=== PATIENT | male | born 1975 | race Caucasian/White ===

== ENCOUNTER 2017-02-22 08:36 | Emergency (ER) | payer BC ==
[2017-02-22 08:43] VITALS: BP 131/72
--- NOTE | 2017-02-22 09:14 | UC ---
Knee Pain HPI - HPI Summary HPI Summary: WHILE GETTING OUT OF TRUCK YESTERDAY LEFT KNEE WAS TURNED AND WHEN HE LANDED ON IT HE FELT IT GIVE OUT. PAIN HAS PERSISTED. WORSE WITH WALKING, PROLONGED SITTING. HAS A CYST REMOVED FROM LEFT KNEE 1993. DENIES CURRENT SENSATION THAT KNEE WILL GIVE OUT. NO POPPING, CLICKING OR LOCKING UP. NO SWELLING. - History of Current Complaint Chief Complaint: UCLowerExtremity Stated Complaint: KNEE PAIN Time Seen by Provider: 02/22/17 08:53 Hx Obtained From: Patient Onset/Duration: Sudden Onset, Lasting Hours, Still Present Severity Initially: Moderate Severity Currently: Moderate Pain Intensity: 6 Pain Scale Used: 0-10 Numeric Character: Sharp Aggravating Factor(s): Movement, Weight Bearing, Stairs Alleviating Factor(s): Rest Associated Signs And Symptoms: Negative: Swelling, Redness, Bruising, Numbness, Tingling Able to Bear Weight: Yes - Allergies/Home Medications Allergies/Adverse Reactions: Allergies Allergy/AdvReac Type Severity Reaction Status Date / Time Amoxicillin Allergy Severe Anaphylatic Verified 02/22/17 08:39 Shock Ampicillin Allergy Severe Anaphylatic Verified 02/22/17 08:39 Shock Penicillins Allergy Severe Anaphylatic Verified 02/22/17 08:39 Shock Home Medications: Home Medications NK [No Home Medications Reported] 02/22/17 [History Confirmed 02/22/17] PMH/Surg Hx/FS Hx/Imm Hx Previously Healthy: Yes - Surgical History Surgical History: Yes Surgery Procedure, Year, and Place: KNEE AND WRIST SURGERY - Family History Known Family History: Positive: Hypertension - Social History Alcohol Use: Occasionally Substance Use Type: None Smoking Status (MU): Never Smoked Tobacco Review of Systems Constitutional: Negative Skin: Negative Respiratory: Negative Cardiovascular: Negative Gastrointestinal: Negative Musculoskeletal: Arthralgia All Other Systems Reviewed And Are Negative: Yes Physical Exam Triage Information Reviewed: Yes Appearance: Well-Appearing, No Pain Distress, Well-Nourished Vital Signs: Initial Vital Signs Temp 98.8 F 02/22/17 08:39 Pulse 77 02/22/17 08:39 Resp 18 02/22/17 08:39 BP 131/72 02/22/17 08:39 Pulse Ox 100 02/22/17 08:39 Vital Signs Reviewed: Yes Eyes: Positive: Conjunctiva Clear ENT: Positive: Hearing grossly normal Neck: Positive: Supple Respiratory: Positive: No respiratory distress, No accessory muscle use Cardiovascular: Positive: Pulses Normal Abdomen Description: Positive: Soft Musculoskeletal: Positive: ROM Intact, No Edema, Other: - LEFT KNEE: NO JOINT LINE TENDERNESS. MCL AND LCL INTACT TO STRESS TESTING. NEG LACHMANS. NEG DRAWERS SIGNS. NEG MCMURRAYS. NEG PATELLAR APPREHENSION TEST. NO TENDERNESS OVER PATELLAR LIGAMENT OR QUADRICEPS TENDON. POINT TENDERNESS MEDIAL FEMORAL CONDYLE. Neurological: Positive: Alert Psychological: Positive: Age Appropriate Behavior Skin: Negative: rashes Diagnostics - Radiology LEFT KNEE XRAY Xray Interpretation: No Acute Changes Radiology Interpretation Completed By: Radiologist Knee Pain Course/Dx - Differential Dx/Diagnosis Provider Diagnoses: LEFT KNEE PAIN Discharge - Discharge Plan Condition: Stable Disposition: HOME Patient Education Materials: Knee Pain (ED) Forms: *Work Release Referrals: Jesus Bell MD [Medical Doctor] - 1 Week Dmitry Trinh MD [Medical Doctor] - If Needed Additional Instructions: UNCLEAR CAUSE OF YOUR KNEE PAIN TODAY. MAY BE A SPRAIN VS. PATELLOFEMORAL INJURY VS. INTERNAL KNEE INJURY. REST OVER THE NEXT FEW DAYS. IF NOT NOTICEABLY IMPROVED BY THE END OF THE WEEKEND FOLLOW-UP WITH ORTHO FOR FURTHER EVAL. OTC MEDS FOR DISCOMFORT. ELPIDIO WRAP FOR COMPRESSION AND SUPPORT.
--- NOTE | 2017-02-22 09:36 | RAD ---
Indication: Left knee pain. 4 views of left knee demonstrates increased sclerosis and deformity of the left lateral femoral condyle. This is also deformity of the patella. No recent injury is noted. IMPRESSION: Deformity of the left lateral femoral condyle and patella which may be postoperative in nature. There are no prior films for comparison. No joint effusion is noted.
== END 2017-02-22 10:02 | disposition home or self-care (01) ==
LOC: UCEAST 08:36
DX: M25.562 Pain in left knee (principal); Z88.1 Allergy status to other antibiotic agents; Z88.0 Allergy status to penicillin
CPT/HCPCS: 99212; G0463

== ENCOUNTER 2017-07-13 11:59 | Observation (INO) | payer BC, OTHER ==
[2017-07-13] MEDS ORDERED: LORazepam INJ* 2 MG/ML 1 ML VIAL IV ONE (13:32)
[2017-07-13] MEDS ORDERED: HYDROmorphone INJ* 1 MG/ML CARPUJECT SYRINGE IV ONE (13:32)
[2017-07-13] MEDS ORDERED: Ondansetron INJ* 2 MG/ML VIAL IV ONE (13:32)
[2017-07-13] MEDS ORDERED: fentaNYL* 50 MCG/ML 2 ML VIAL (100 MCG VIAL) ONE ×4 (16:23→20:58)
[2017-07-13] MEDS ORDERED: Midazolam* 1 MG/ML 5 ML VIAL (5 MG) ONE ×3 (16:23→18:50)
[2017-07-13] MEDS ORDERED: Flumazenil* 0.1 MG/ML 5 ML MDV ONE (16:24)
[2017-07-13] MEDS ORDERED: Naloxone* 0.4 MG/ML 1 ML VIAL ONE (16:24)
--- NOTE | 2017-07-13 17:27 | HP ---
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 He noted a lump in the groin and came to the [facility] at noon. He has had nausea, no vomiting, and abdominal bloating. He had an attempted reduction by ED staff without success and surgical consult was requested. PMH: none PSH: left wrist surgery; knee surgery Meds: none All: PCN/amoxicillin causes throat swelling. 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 FH: Father has CAD (stent); Mother A&W. ROS: Denies other than above PE: Vital Signs Temp 97.8 F 07/13/17 12:13 Pulse 76 07/13/17 16:57 Resp 18 07/13/17 13:52 BP 133/81 07/13/17 16:57 Pulse Ox 99 07/13/17 16:57 Intake & Output 07/12/17 07/13/17 07/13/17 18:59 06:59 18:59 Weight 175 lb Gen: muscular, WDWN; lying in ER stretcher in NAD HEENT: NCAT; EOMI; mmm; no nat/rhinorrhea. Neck: symmetrical, supple Lungs: CTA B Heart: reg s1s2 Abd: no scars; softly distended; nontender; Right groin mass, non-reducible and tender : nl male Ext: warm; multiple tattoos Impression: 41 yo M with incarcerated [facility] Plan/Recommendation: Reduction and operative repair with mesh, laparoscopic, possible open. I discussed the findings with the patient and his . There is concern for strangulation, however he has no cardinal signs or peritonitis at this time. I explained the recommendation, nature of the procedure, indications, risks, benefits, alternatives and option of no treatment. Risks explained including , not limited to, bleeding, infection, pain, scarring, blood clots, pneumonia, hernia recurrence, and risks of GETA. All questions answered and he agreed to proceed. OR is not available at present due to other surgical emergency. Therefore, I attempted reduction with conscious sedation (by Dr. Fagan) however, this was not successful. Discussed with , I do not recommend transfer at this time as expected OR availability is less than time it would take to transfer and treat at other institution (she prefers [facility]).
[2017-07-13 17:31] LABS: ABS Basophils 0 10^3/ul (0-0.2); ABS Eosinophils 0 10^3/ul (0-0.6); ABS Monocytes 0.4 10^3/ul (0-0.8); ABS Neutrophils 9.6 10^3/ul (1.5-7.7); ABS Nucleated RBC 0 10^3/ul; Eosinophil % 0 % (0-6); Hematocrit 39 % (42-52); Hemoglobin 13.4 g/dl (14.0-18.0); Lymphocyte % 8.7 % (25-47); Mean Corpuscular HGB Conc 34 g/dl (31-36); Mean Corpuscular Hemoglobin 27 pg (27-31); Mean Corpuscular Volume 78 fL (80-94); Mean Platelet Volume 8 um3 (7.4-10.4); Nucleated Red Blood Cells % 0.1; Platelet Count 224 10^3/ul (150-450); Red Blood Count 4.96 10^6/ul (4.0-5.4); Red Cell Distribution Width 15 % (10.5-15); White Blood Count 10.9 10^3/ul (3.5-10.8)
[2017-07-13] MEDS ORDERED: Vancomycin(*) 1,250 MG in NS 0.9% 250 ML* 250 ML IVPB ONE (17:35)
[2017-07-13] MEDS ORDERED: Clindamycin 900 MG IVPREMIX(* 900 MG/50 ML SDV IV ONE ×2 (17:37→18:21)
[2017-07-13] MEDS ORDERED: Ondansetron INJ* 2 MG/ML VIAL ONE (18:50)
[2017-07-13] MEDS ORDERED: Propofol* 10 MG/ML 20 ML BTL IV PUSH ONE (18:50)
[2017-07-13] MEDS ORDERED: Cisatracurium* 2 MG/ML MDV 5 ML ONE (18:50)
[2017-07-13] MEDS ORDERED: Dexamethasone IV* 4 MG/ML 1 ML (4 MG) ONE (18:50)
[2017-07-13] MEDS ORDERED: Lidocaine 2% PF * 5 ML VIAL ONE (18:50)
[2017-07-13] MEDS ORDERED: Ketorolac INJ* 30 MG/ML 1 ML VIAL ONE (18:51)
[2017-07-13] MEDS ORDERED: HYDROmorphone INJ* 2 MG/ML CARPUJECT SYRINGE IV SLOW PU PRN (19:25)
[2017-07-13] MEDS ORDERED: HYDROmorphone INJ* 2 MG/ML CARPUJECT SYRINGE ONE (19:28)
[2017-07-13] MEDS ORDERED: Bupivacaine 0.25% SDV* 30 ML ONE (20:29)
[2017-07-13] MEDS ORDERED: Famotidine IV* 10 MG/ML 2 ML (20 mg) ONE (21:00)
[2017-07-13] MEDS ORDERED: HYDROmorphone INJ* 1 MG/ML CARPUJECT SYRINGE IV PRN (21:51)
[2017-07-13] MEDS ORDERED: Ondansetron INJ* 2 MG/ML VIAL IV PRN (21:51)
[2017-07-13] MEDS ORDERED: fentaNYL* 50 MCG/ML 2 ML VIAL (100 MCG VIAL) IV PRN (21:51)
[2017-07-13] MEDS ORDERED: Naloxone* 0.4 MG/ML 1 ML VIAL IV PRN (21:51)
[2017-07-13] MEDS ORDERED: HYDROcodone/ACETAMIN 5-325 MG* 1 TAB PO PRN (22:18)
[2017-07-13] MEDS ORDERED: Ibuprofen TAB* 600 MG PO PRN (22:18)
--- NOTE | 2017-07-13 22:21 | BRIEFOPN ---
Brief Operative Note - Surgery Procedures: PRE/POSTOP DX: INCARCERATED RIH PROC: REDUCTION AND LAPAROSCOPIC REPAIR (TEP) OF RIH WITH MESH; DIAGNOSTIC LAPAROSCOPY. SURG: MECENAS ASSIST: NONE ANES: GET/TOAL EBL: MIN IVF: LR SPEC: NONE DRAIN: NONE COMPL: NONE COND: STABLE TO RR. EXTUBATED.
--- NOTE | 2017-07-14 09:34 | DS ---
ADMITTED 07/13/17 DISCHARGED 07/14/17 DX: INCARCERATED RIH PROC: REDUCTION AND LAPAROSCOPIC REPAIR OF INCARCERATED RIH WITH MESH; UMBILICAL HERNIA REPAIR; DIAGNOSTIC LAPAROSCOPY. 41 yo M with incarcerated RIH was seen in the ED and brought for emergent reduction and repair of hernia (laparoscopic) with no complications. The patient did well post op and is being discharged home with plans to follow up in [facility] office in 7-10 days. No tests pending. He will take ibuprofen or [place] as needed for pain (I-STOP#[id number]). Diet and activity instructions were reviewed. 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
[2017-07-14 10:13] VITALS: BP 123/70
--- NOTE | 2017-07-14 12:25 | ED ---
Guzman Christopher Stephanie, scribed for Sammy Fagan MD on 07/13/17 at 1335 . Abdominal Pain/Male - HPI Summary HPI Summary: The pt is a 41 y/o M presenting to the ED with c/o abd pain that began at 11:00 today s/p lifting weights at the gym. The pt states he felt a strain in his groin and saw a bulge when he checked his groin in the bathroom. - History of Current Complaint Chief Complaint: EDAbdPain Stated Complaint: HERNIA Time Seen by Provider: 07/13/17 12:53 Hx Obtained From: Patient Onset/Duration: Sudden Onset, Still Present Timing: Constant Severity Currently: Severe Pain Intensity: 8 Pain Scale Used: 0-10 Numeric Location: Groin Character: Sharp Aggravating Factor(s): Movement Alleviating Factor(s): Nothing - Allergies/Home Medications Allergies/Adverse Reactions: Allergies Allergy/AdvReac Type Severity Reaction Status Date / Time amoxicillin Allergy Severe Anaphylatic Verified 07/13/17 13:59 Shock ampicillin Allergy Severe Anaphylatic Verified 07/13/17 13:59 Shock Penicillins Allergy Severe Anaphylatic Verified 07/13/17 13:59 Shock PMH/Surg Hx/FS Hx/Imm Hx Sensory History: Denies: Hx Legally Blind EENT History: Denies: Hx Deafness - Surgical History Surgery Procedure, Year, and Place: KNEE AND WRIST SURGERY Infectious Disease History: No Infectious Disease History: Denies: Traveled Outside the [place] in Last 30 Days - Family History Known Family History: Positive: Hypertension - Social History Occupation: Employed Full-time Lives: With Family Alcohol Use: Occasionally Substance Use Type: Reports: None Smoking Status (MU): Never Smoked Tobacco Review of Systems Negative: Fever Positive: Abdominal Pain - groin pain All Other Systems Reviewed And Are Negative: Yes Physical Exam - Summary Physical Exam Summary: Appearance: The patient is well-nourished in no acute distress and in no acute pain. Skin: The skin is warm and dry and skin color reflects adequate perfusion. HEENT: The head is normocephalic and atraumatic. The pupils are equal and reactive. The conjunctivae are clear and without drainage. Nares are patent and without drainage. Mouth reveals moist mucous membranes and the throat is without erythema and exudate. The external ears are intact. The ear canals are patent and without drainage. The tympanic membranes are intact. Neck: the neck is supple with full range of motion and non-tender. There are no carotid bruits. There is no neck vein distension. Respiratory: Chest is non-tender. Lungs are clear to auscultation and breath sounds are symmetrical and equal. Cardiovascular: Heart is regular rate and rhythm. There is no murmur or rub auscultated. There is no peripheral edema and pulses are symmetrical and equal. Abdomen: The abdomen is soft and non-tender. There are normal bowel sounds heard in all four quadrants and there is no organomegaly palpated. R inguinal hernia containing bowel. Musculoskeletal: There is no back tenderness noted. Extremities are non-tender with full range of motion. There is good capillary refill. There is no peripheral edema or calf tenderness elicited. Neurological: Patient is alert and oriented to person, place and time. The patient has symmetrical motor strength in all four extremities. Cranial nerves are grossly intact. Deep tendon reflexes are symmetrical and equal in all four extremities. Psychiatric: The patient has an appropriate affect and does not exhibit any anxiety or depression. Triage Information Reviewed: Yes Vital Signs On Initial Exam: Initial Vitals Temp Pulse Resp BP Pulse Ox 97.8 F 70 18 151/78 98 07/13/17 12:13 07/13/17 12:13 07/13/17 12:13 07/13/17 12:13 07/13/17 12:13 Vital Signs Reviewed: Yes Procedures - Procedure Summary Procedure Summary: Mr. Ross was given moderate conscious sedation in order for Dr. Weinstein to attempt reduction of his right inguinal hernia. He has no systemic illness and a Mallampati of I. He was given 12mg of Versed and 100 micrograms of Fentanyl IV. He maintained his SPO2 and etCO2 well and was only arousable to painful stimuli. He recovered well. I spent a total of 15 minutes at the bedside. Diagnostics - Vital Signs Vital Signs Temp Pulse Resp BP Pulse Ox 07/13/17 12:13 97.8 F 70 18 151/78 98 - Laboratory Lab Results: Lab Results 07/13/17 Range/Units 16:56 WBC 10.9 H (3.5-10.8) 10^3/ul RBC 4.96 (4.0-5.4) 10^6/ul Hgb 13.4 L (14.0-18.0) g/dl Hct 39 L (42-52) % MCV 78 L (80-94) fL MCH 27 (27-31) pg MCHC 34 (31-36) g/dl RDW 15 (10.5-15) % Plt Count 224 (150-450) 10^3/ul MPV 8 (7.4-10.4) um3 Neut % (Auto) 87.6 H (38-83) % Lymph % (Auto) 8.7 L (25-47) % [place] % (Auto) 3.6 (0-7) % Eos % (Auto) 0 (0-6) % Baso % (Auto) 0.1 (0-2) % Absolute Neuts (auto) 9.6 H (1.5-7.7) 10^3/ul Absolute Lymphs (auto) 1.0 (1.0-4.8) 10^3/ul Absolute Monos (auto) 0.4 (0-0.8) 10^3/ul Absolute Eos (auto) 0 (0-0.6) 10^3/ul Absolute Basos (auto) 0 (0-0.2) 10^3/ul Absolute Nucleated RBC 0 10^3/ul Nucleated RBC % 0.1 Result Diagrams: 07/13/17 16:56 Lab Statement: Any lab studies that have been ordered have been reviewed, and results considered in the medical decision making process. Abdominal Pain Fem Course/Dx - Course Course Of Treatment: Mr. Ross sustained a right inguinal hernia while lifting weights just TAGMAN. He had an obvious hernia with bowel down into his scrotum. He was given pain medications and Ativan and placed supine with his knees up but I was unable to reduce it in that fashion. Dr. Weinstein was contacted and came to evaluate him. He wanted to take him to the OR but it was not immediately available so we attempted reduction under conscious sedation unsuccessfully. The OR became available and he was taken. - Diagnoses Provider Diagnoses: Incarcerated inguinal hernia - Provider Notifications Discussed Care Of Patient With: Frank Weinstein Time Discussed With Above Provider: 15:47 Discharge - Discharge Plan Condition: Stable Disposition: ADMITTED TO [facility] The documentation as recorded by the Guzman loza Stephanie accurately reflects the service I personally performed and the decisions made by me, Sammy Fagan MD.
--- NOTE | 2017-07-14 20:07 | OP ---
DATE OF OPERATION: 07/13/17 - ROOM #333 DATE OF : 77 SURGEON: Frank Weinstein MD HOUSEHOLD APPLIANCES SALESPERSON: None. ANESTHESIOLOGIST: Dr. Tarik Sanders. ANESTHESIA: General endotracheal. PRE-OP DIAGNOSIS: Incarcerated right inguinal hernia. POST-OP DIAGNOSIS: Incarcerated right inguinal hernia. OPERATIVE PROCEDURE: Reduction and laparoscopic repair of right inguinal hernia with mesh and diagnostic laparoscopy. ESTIMATED BLOOD LOSS: Minimal. IV FLUIDS: Crystalloids. SPECIMENS: None. DRAINS: None. COMPLICATIONS: None. COUNTS: Instrument, needle, and sponge counts correct. OPERATIVE FINDINGS: Indirect right inguinal hernia with incarcerated small bowel. DESCRIPTION OF PROCEDURE: The patient was brought to the operating room and placed on the table supine. Sequential compression devices were placed on both lower extremities. General anesthesia was administered. The hernia was reduced. Baltazar catheter was placed. His abdomen was prepped and draped in usual sterile fashion. Time-out was performed. Local anesthetic was infiltrated into the skin and soft tissue prior to making each incision. Initial incision was curvilinear infraumbilical and the anterior rectus fascia was identified to the right of midline. The fascia was incised transversely and the underlying muscle fibers were retracted laterally and the preperitoneal balloon dissection was positioned down to the level of the pubic symphysis. The space was opened under direct visualization. The dissection was removed and replaced with a 12-mm blunt port. Carbon dioxide was then insufflated to a pressure of 10 mmHg. Two 5-mm trocars were placed in the lower midline. Dissection was then proceeded from the midline laterally, identifying the pubic symphysis, pubic tubercle, and Bret's ligaments, and inferior epigastric vessels were identified and preserved anteriorly. The indirect inguinal hernia sac was identified and in this from the cord structures, a rent was made in the sac. The sac was noted to be traversing into the ring and ultimately, the sac was cut, divided and it was closed proximally by use of endoscopic clip placement. The peritoneum was dissected off of the retroperitoneum and laterally the dissection proceeded to the anterior superior iliac spine. After completing the dissection, a ProGrip laparoscopic mesh was cut to appropriate size and placed into the preperitoneal space and then it was positioned to cover the direct, indirect, and femoral spaces. Once the mesh was in good position, the preperitoneal space was desufflated under direct visualization and the ports were removed. The 12-mm port was then positioned in the abdomen through a transumbilical approach. The patient had umbilical hernia that was entered in order to access the peritoneal cavity. The trocars placed into the peritoneum and carbon dioxide was insufflated and then a 5-mm trocar was advanced into the peritoneal cavity and bowel grasper was used in order to aid dissection. Inspection of the groin revealed no exposure of the mesh and excellent coverage of the hernia space. The sigmoid colon and cecum appeared normal as did the appendix. The small bowel was run proximally from the ileocecal valve and in the area of the proximal ileum or distal jejunum. There was a portion of small bowel with linear contusion and a contusion on the mesentery that were consistent with bowel that was incarcerated in the hernia. The bowel was run back proximally to within a foot or two of the ligament of Treitz. The bowel otherwise appeared normal. At this point, the ports were removed and carbon dioxide was released. The umbilical defect was closed with 0 Vicryl in interrupted figure- of- eight in simple interrupted fashion to approximate the fascia and the umbilical stalk was reapproximated to the anterior fascia with 3-0 Vicryl. The anterior rent in the rectus was closed with 0 Vicryl as well. The skin incisions were all closed with 4-0 Monocryl in interrupted subcuticular fashion. Steri-Strips were applied to the sites. The patient tolerated this procedure well and was extubated and transferred to Recovery in a stable condition. [id number]/[facility] #: [id number] ROSS
== END 2017-07-14 11:30 | disposition home or self-care (01) ==
LOC: ED 11:59 → OR 19:29 → SSU 20:20
PROVIDERS: ADMIT Surgery; ATTEND Surgery
PROC: 0YU54JZ Supplement Right Inguinal Region with Synthetic Substitute, Percutaneous Endoscopic Approach (ICD-10-PCS; principal; 2017-07-13 21:03)
DX: K40.30 Unilateral inguinal hernia, with obstruction, without gangrene, not specified as recurrent (principal)
CPT/HCPCS: 36415; 85025; 99285; A9270-GY; C1776; G0378; J1100; J1170; J1885; J2060; J2250; J2310; J2405; J2704; J3010; J3370